=== PATIENT | male | born 1965 | race Caucasian/White ===

== ENCOUNTER 2018-01-23 12:13 | Outpatient (CLI) | payer OTHER ==
[~2018-01-23 12:13] MED LIST: AVAPRO150 MG PO; LEVSINEX0.375 M1 PO; PHENERGAN25 MG PO; PROTONIX40 MG PO
== END 2018-01-23 12:21 | disposition home or self-care (01) ==
LOC: SONOGRAMA 12:13
DX: M67.871 Other specified disorders of synovium, right ankle and foot (principal)